=== PATIENT | male | born 1985 | race Caucasian/White ===

== ENCOUNTER 2019-04-02 22:59 | Inpatient (IN) | payer SELFPAY ==
[~2019-04-02] VITALS: Ht 170.2 cm; Wt 77.1 kg
[2019-04-02 23:03] VITALS: Ht 170.2 cm; Wt 77.1 kg
--- NOTE | 2019-04-02 23:21 | NUR ---
PT BIB SISTER AND FATHER FOR HEMATEMESIS X3 DAYS. PER PT DARK RED BLOOD NOTED. SISTER STS PT DRINK ETOH "A TON." PT AAO4, RESP E/U. GIVEN EMESIS BAG AND BLANKET FOR COMFORT. MSE BY LORETTA HILARIO.
[2019-04-02 23:58] LABS: BASOPHIL % 0.2 % (0-2); PLATELET COUNT 228 x10^3mcL (130-400); RED CELL DISTRIBUTION WIDTH 13.9 % (11.5-14.5)
[2019-04-03 00:18] LABS: CALCIUM 8.6 mg/dL (8.5-10.1); CARBON DIOXIDE 19.4 mmol/L (21-32); CHLORIDE SERUM 93 mmol/L (98-107); CREATININE SERUM 1.4 mg/dL (0.7-1.3); GFR1 > 60 mL/min; GLUCOSE SERUM 157 mg/dL (74-106); POTASSIUM SERUM 3.5 mmol/L (3.5-5.1); SODIUM SERUM 139 mmol/L (136-145)
[2019-04-03 00:24] LABS: ALBUMIN 4.5 g/dL (3.4-5.0); ALKALINE PHOSPHATASE 86 U/L (46-116); ALT/SGPT 231 U/L (16-63); AST/SGOT 207 U/L (15-37); BILIRUBIN TOTAL 0.7 mg/dL (0.20-1.00); LIPASE 558 IU/L (73-393); TOTAL PROTEIN, SERUM 8.2 g/dL (6.4-8.2)
--- NOTE | 2019-04-03 00:40 | NUR ---
PT IN [facility], CONNECTED TO FULL CM. SISTER REMAINS AT BEDSIDE. PT STS WANTS PAIN MEDS. MD HILARIO MADE AWARE. STS PT NEEDS TO PROVIDE URINE FIRST.
--- NOTE | 2019-04-03 01:26 | NUR ---
PER MD PT ALCOHOL LEVEL TOO HIGH FOR PAIN MEDS. FAMILY AND PT MADE AWARE. VERBALIZES UNDERSTANDING
--- NOTE | 2019-04-03 01:35 | NUR ---
REPORT GIVEN TO RIMA STOCKTON TO ASSUME CARE.
--- NOTE | 2019-04-03 01:49 | NUR ---
REPORT RECIEVED FROM LENIN ABARCA TO ASSUME CARE OF PT.
[2019-04-03 01:59] LABS: AMPHETAMINE QUAL UR NONE DETECTED (See below)
--- NOTE | 2019-04-03 02:03 | NUR ---
PT MEDICATED PER ORDER. SEE EMAR.
[2019-04-03] MEDS ORDERED: PROTONIX20 MG (02:19)
[2019-04-03] MEDS ORDERED: LEXAPRO5 M1 (02:19)
--- NOTE | 2019-04-03 02:28 | NUR ---
REPORT GIVEN TO RN FRANCINE TO ASSUME CARE OF PT.
--- NOTE | 2019-04-03 02:34 | NUR ---
PT TRANSFERRED TO TELE BED 240B VIA GURNEY WITH EMT JUWAN AND RIMA GOLD AT PT SIDE. PT TRANSFERRED WITHOUT INCIDENCE.
[2019-04-03 02:59] VITALS: BP 115/77
--- NOTE | 2019-04-03 03:01 | NUR ---
ADMIT FOR POSSIBLE GI BLEED WITH COFFEE GROUND EMESIS. DENIES N/V AT THIS TIME. AOX4. TELE #26, ST. HR 120'S. BREATHING E/U. C/O ABD PAIN, HICCUPS, AND SORE THROAT. EASILY AGITATED. WILL MEDICATE PER EMAR. IV TO RAC, PATENT. INSTRUCTED ON NPO STATUS. ORIENTED TO ROOM. BED IN LOWEST POSITION, 2 SIDE RAILS UP, CALL LIGHT IN REACH.
[2019-04-03 03:10] LABS: FREE T4 0.86 ng/dL (0.76-1.46); FREE THYROXINE INDEX 2.3 ug/dL (1.4-4.5); T4(THYROXINE) 6.5 ug/dL (4.7-13.3)
[2019-04-03 04:02] LABS: CHOLESTEROL/HDL RATIO 2.1; MAGNESIUM 1.8 mg/dL (1.8-2.4); PHOSPHOROUS 2.7 mg/dL (2.5-4.9); T3 TOTAL 1.15 ng/mL
--- NOTE | 2019-04-03 04:20 | NUR ---
DR ROMEO MADE AWARE OF HR IN 140-150'S. PT RESTING IN NO ACUTE DISTRESS. WILL CONTINUE TO MONITOR.
--- NOTE | 2019-04-03 06:32 | NUR ---
PT HR SUSTAINING 160'S. ADMINISTERED CARDIZEM PO PER DR. ROMEO. NO C/O N/V. NO S/S GI BLEED AT THIS TIME. NO ACUTE DISTRESS NOTED. WILL ENDORSE TO ONCOMING RN.
[2019-04-03 06:49] LABS: BASOPHIL % 0.3 % (0-2); PLATELET COUNT 199 x10^3mcL (130-400); RED CELL DISTRIBUTION WIDTH 13.8 % (11.5-14.5)
--- NOTE | 2019-04-03 07:21 | NUR ---
ASSUMED CARE OF PATIENT. AWAKE AND ALERT THIS MORNING. REPORTING "FEELING BETTER," REQUESTING CEPACOL FOR SORE THROAT. NO APPARENT DISTRESS THIS MORNING. IV TO RAC PATENT AND INFUSING NS AT 120ML/HR. WILL CONTINUE TO MONITOR.
[2019-04-03 07:33] LABS: UA SPECIFIC GRAVITY 1.025 (1.005-1.035); microscopic required? YES; urine erythrocyte 2+ (NEGATIVE)
[2019-04-03 07:40] LABS: CALCIUM 7.8 mg/dL (8.5-10.1); CARBON DIOXIDE 22.7 mmol/L (21-32); CHLORIDE SERUM 96 mmol/L (98-107); CREATININE SERUM 0.9 mg/dL (0.7-1.3); GFR1 > 60 mL/min; GLUCOSE SERUM 125 mg/dL (74-106); MAGNESIUM 1.7 mg/dL (1.8-2.4); PHOSPHOROUS 3.2 mg/dL (2.5-4.9); SODIUM SERUM 140 mmol/L (136-145)
[2019-04-03 08:00] LABS: POTASSIUM SERUM 2.9 mmol/L (3.5-5.1)
--- NOTE | 2019-04-03 08:26 | NUR ---
PATIENT COMPLAINING OF 5/10 ABDOMINAL PAIN WITH HICCUPS. PRN TYLENOL AND ZOFRAN PROVIDED.
--- NOTE | 2019-04-03 08:34 | NUR ---
IVF RATE DECREASED TO 100ML/HR PER ORDERS.
[2019-04-03 08:45] VITALS: BP 128/74
--- NOTE | 2019-04-03 09:51 | NUR ---
PRN NORCO PROVIDED FOR 5/10 ABDOMINAL PAIN. PATIENT IS RESTING IN BED WITHOUT ANY APPARENT DISTRESS. RESPIRATIONS ARE EQUAL AND UNLABORED. MILD TREMORS NOTED.
[2019-04-03 10:55] VITALS: BP 131/83
--- NOTE | 2019-04-03 11:13 | NUR ---
PRN ATIVAN PROVIDED FOR TREMORS, SWEATING, AND INCREASED ANXIETY. PATIENT HAD EPISODE OF EMESIS WITH COFFE-GROUND PARTICLES. PATIENT NOT IN DISTRESS AFTER THE EPISODE AND NO LONGER REPORTING NAUSEA.
--- NOTE | 2019-04-03 12:15 | NUR ---
PRN ATIVAN PROVIDED FOR ANXIETY AND ZOFRAN PROVIDED FOR NAUSEA.
--- NOTE | 2019-04-03 13:55 | NUR ---
ABLE TO TOLERATE SMALL AMOUNTS OF CLEAR LIQUID DIET. NO EPISODE OF EMESIS AFTER EATING.
[2019-04-03 15:09] LABS: CALCIUM 8.3 mg/dL (8.5-10.1); CARBON DIOXIDE 27.3 mmol/L (21-32); CHLORIDE SERUM 99 mmol/L (98-107); CREATININE SERUM 0.8 mg/dL (0.7-1.3); GFR1 > 60 mL/min; GLUCOSE SERUM 112 mg/dL (74-106); POTASSIUM SERUM 3.8 mmol/L (3.5-5.1); SODIUM SERUM 136 mmol/L (136-145)
--- NOTE | 2019-04-03 15:15 | NUR ---
PATIENT COMPLAINING OF TREMORS AND ANXIETY. PRN ATIVAN PROVIDED.
--- NOTE | 2019-04-03 15:39 | NUR ---
PATIENT HAD EPISODE OF BROWN COLORED EMESIS.
--- NOTE | 2019-04-03 15:59 | NUR ---
PRN NORCO PROVIDED FOR 6/10 ABDOMINAL PAIN AND ZOFRAN PROVIDED FOR NAUSEA.
[2019-04-03 16:15] VITALS: BP 136/87
--- NOTE | 2019-04-03 16:21 | NUR ---
PATIENT IN 04/08 ABDOMINAL PAIN. ATTEMPTING TO CONTACT AND RESIDENTS AT THIS TIME.
--- NOTE | 2019-04-03 16:39 | NUR ---
NOTIFIED OF PATIENTS 04/08. AWAITING NEW ORDERS.
--- NOTE | 2019-04-03 17:06 | NUR ---
INCREASED NORCO DOSE TO 7.5. DUE TO EARLIER 5MG DOSE, UNABLE TO PROVIDE TO PATIENT FOR 10/10 ABDOMINAL PAIN. PAGED AGAIN FOR POSSIBLE ONE TIME DOSE.
--- NOTE | 2019-04-03 17:34 | NUR ---
PRN TYLENOL PROVIDED FOR 9/10 ABDOMINAL PAIN, NO OTHER PAIN MEDICATIONS AVAILABLE AT THIS POINT. ATTEMPTED TO CONTACT RESIDENTS BUT NO RESPONSE.
--- NOTE | 2019-04-03 18:37 | NUR ---
PATIENT RESTING IN BED WITH COMPLAINTS OF ABDOMINAL PAIN. PRN ATIVAN PROVIDED PER EMAR. IV TO RAC PATENT AND INFUSING NS AT 50ML/HR. WILL ENDORSE CARE TO ONCOMING RN.
[2019-04-03 19:36] VITALS: BP 135/88
--- NOTE | 2019-04-03 19:54 | NUR ---
PT CURRENTLY RESTING IN BED, NO ACUTE DISTRESS. A/O X4. TELE #26 SHOWING SINUS TACHYCARDIA, DENIES CHEST PAIN. PULSES PALPABLE IN ALL EXTREMITIES, NO EDEMA NOTED. LUNG SOUNDS CTA BILATERALLY, DENIES SOB. BOWEL SOUNDS ACTIVE, LAST BM 04/02/19. C/O N/V, ABD PAIN /10, AND HICCUPS, WILL MEDICATE PER EMAR. VOIDING WELL. MILD GENERALIZED WEAKNESS. SKIN INTACT. IV PATENT AND INTACT. BED IN LOWEST POSITION, SIDE RAILS UP X2, CALL LIGHT WITHIN REACH. WILL CONTINUE TO MONITOR.
--- NOTE | 2019-04-03 20:00 | NUR ---
PT VOMITTING BROWN EMESIS, MEDICATED PT PER EMAR.
--- NOTE | 2019-04-04 00:38 | NUR ---
PT CURRENTLY RESTING IN BED, NO ACUTE DISTRESS. WILL CONTINUE TO MONITOR.
[2019-04-04 04:53] VITALS: BP 119/76
--- NOTE | 2019-04-04 06:02 | NUR ---
PT SLEPT PERIODICALLY THROUGHOUT NIGHT, MULTIPLE EPISODES OF VOMITTING BROWN EMESIS, MEDICATED PER EMAR. NO SIGNIFICANT CHANGES. IV PATENT AND INTACT. BED IN LOWEST POSITION, SIDE RAILS UP X2, CALL LIGHT WITHIN REACH. WILL ENDORSE CARE TO ONCOMING NURSE.
[2019-04-04 06:22] LABS: BASOPHIL % 0.7 % (0-2); PLATELET COUNT 159 x10^3mcL (130-400); RED CELL DISTRIBUTION WIDTH 13.6 % (11.5-14.5)
[2019-04-04 06:26] LABS: CALCIUM 8.2 mg/dL (8.5-10.1); CARBON DIOXIDE 24.9 mmol/L (21-32); CHLORIDE SERUM 96 mmol/L (98-107); CREATININE SERUM 0.6 mg/dL (0.7-1.3); GFR1 > 60 mL/min; GLUCOSE SERUM 106 mg/dL (74-106); POTASSIUM SERUM 3.3 mmol/L (3.5-5.1); SODIUM SERUM 133 mmol/L (136-145)
--- NOTE | 2019-04-04 07:29 | NUR ---
PT SITTING IN BED A/A. BREATHING EQUAL/UNLABORED ON RA. PT HAS HICCUPS. IVF RUNNING AT 50 ML/HR. NO REDNESS/ SWELLING TO IV SITE. BED IN LOW POSITON, CALL LIGHT IN REACH, SEIZURE PRECAUTIONS IN PLACE. WILL CONTINUE TO MONITOR
[2019-04-04 07:37] VITALS: BP 137/82
[2019-04-04 11:49] VITALS: BP 127/80
--- NOTE | 2019-04-04 11:50 | NUR ---
PT LYING IN BED A/A. BREATHING EQUAL/ UNLABORED ON RA. IVF RUNNING AT 50ML/HR. NO REDNESS/ SWELLING AT IV SITE. C/O BURNING IN THROAT/ AND MILD NAUSEA. PT STATES HE DOES NOT WANT MEDICATION AT THIS TIME. BED IN LOW POSITION, CALL LIGHT IN REACH, SEIZURE PRECAUTIONS IN PLACE. WILL CONTINUE TO MONITOR
[2019-04-04 15:40] VITALS: BP 112/76
--- NOTE | 2019-04-04 15:41 | NUR ---
[employer] LEADER CALLED AND NOTIFIED ME THAT PT PULSE WAS 160. PT AYSMPTOMATIC. VS TAKEN. PT VSS/ WITH SINUS TACH. PT SLEEPING IN BED. BREATHING EQUAL/ UNLABORED ON RA. BED IN LOW POSITION, CALL LIGHT IN REACH, SEIZURE PRECAUTIONS IN PLACE. WILL CONTINUE TO MONITOR
--- NOTE | 2019-04-04 16:10 | NUR ---
PT FOUND WITH HIS OWN CLOTHES ON/ IV OUT WITH CATHETER INTACT/ TELE OFF AND STATED "ARE WE DONE, I THOUGHT I WAS GOING HOME". PT RE ORIENTED, PT NOW WEARING HOSPITAL GOWN, LYING IN BED. NEW IV PLACED. TELE PLACED. PT SLEEPING, BREATHING EQUAL/ UNLABORED. IVF RUNNING AT 50ML/HR. BED IN LOW POSITION, CALL LIGHT IN REACH, SEIZURE PRECAUTIONS IN PLACE. WILL CONTINUE TO MONITOR
--- NOTE | 2019-04-04 18:41 | NUR ---
PT LYING IN BED WITH EYES CLOSED, AROUSABLE TO VOICE. BREATHING EQUAL/ UNLABORED ON RA. IVF RUNNING AT 50ML/HR. NO REDNESS/ SWELLING TO IV SITE. NO ACUTE DISTRESS/ PAIN NOTED AT THIS TIME. BED IN LOW POSITION, CALL LIGHT IN REACH. SEIZURE/ FALL PRECAUTIONS IN PLACE. WILL ENDORSE TO ON COMING NURSE
--- NOTE | 2019-04-04 19:05 | NUR ---
RECEIVED REPORT FROM VIKY ABARCA. ASSUMING ALL CARE
--- NOTE | 2019-04-04 19:25 | NUR ---
RECEIVED PT LAYING IN BED. PT IS A/OX4. SPEECH IS CLEAR. ABLE TO MAKE NEEDS KNOWN/FOLLOW SIMPLE COMMANDS. DENIES [place]. SEIZURE PRECAUTIONS IN PLACE. EENT FREE OF DISCHARGE. ORAL MUCOSA PINK AND MOIST. NO JVD NOTED. TRACHEA MIDLINE. BREATHING IS E/U ON RA. LUNGS SOUND CLEAR BILAT. SYMMETRICAL CHEST EXPANSION NOTED. S1/S2 HEART SOUNDS AUSCULTATED. CHEST WALL EQUAL AND SYMMETRICAL. DENIES ANY CP. PT ON TELE [address] PALPABLE PULSES X4 EXTREMITIES. SKIN IS WARM AND DRY. NO EDEMA NOTED. RFA IV IN PLACE INFUSING NS @ 40 ML/HR. CAP REFILL < 3 SECS. GENERALIZED WEAKNESS. ACTIVE FULL ROM X4 EXTREMITIES. NO JOINT SWELLING/DEFORMITY NOTED. PT IS ON CLEAR LIQUID DIET. ABD IS SOFT, ROUND, NONTENDER TO PALPATION. BOWEL SOUNDS ACTIVE X4 QUADRANT. NO BM NOTED. DENIES ANY N/V, ABD PAIN AT THIS TIME. PT VOIDS FREELY VIA URINAL. NO SCROTAL EDEMA/PENILE DISCHARGE NOTED. SKIN IS INTACT. PT ABLE TO REPOSITION SELF INDEPENDETLY. PT IS CALM AT THIS TIME. HX: ETOH ABUSE. BED IN LOW POSITION. CALL LIGHT IN REACH. WILL CONT TO MONITOR
[2019-04-04 20:18] VITALS: BP 108/77
--- NOTE | 2019-04-04 20:36 | NUR ---
PT AGITATED AT THIS TIME. C/O FEELING ANXIOUS. PT MEDICATED WITH ATIVAN 1 MG IVP PER EMAR. WILL CONT TO MONITOR
--- NOTE | 2019-04-04 21:35 | NUR ---
PT C/O BACK PAIN RATED 8/10. PT MEDICATED WITH NORCO PER EMAR. WILL CONT TO MONITOR
--- NOTE | 2019-04-04 23:33 | NUR ---
PT IS RESTLESS/AGITATED AT THIS TIME. PT MEDICATED WITH ATIVAN IVP PER EMAR
--- NOTE | 2019-04-05 01:30 | NUR ---
ENTERED PT'S ROOM TO FIND PT SITTING ON A CHAIR MUMBLING TO HIMSELF. WHEN ASKED IF HE WAS OK, PT STATED, " ALL SHIT BROKE LOOSE". PT REMOVED RFA IV, NOTED WITH CATH INTACT. PT ASSISTED BACK IN BED AND ORIENTED AT THIS TIME. NEW IV ESTABLISHED TO RAC 20 GAUGE. IV FLUSHED 10 ML OF NS WITH NO S/S OF INFILTRATION NOTED.
--- NOTE | 2019-04-05 01:45 | NUR ---
PT C/O ACHING BACK PAIN RATED 8/10. PT MEDICATED WITH NORCO PER EMAR
--- NOTE | 2019-04-05 01:53 | NUR ---
PT AGITATED AT THIS TIME. PT MEDICATED WITH ATIVAN PER EMAR. WILL CONT TO MONITOR.
--- NOTE | 2019-04-05 03:38 | NUR ---
ENTERED PT'S ROOM TO FIND PT SITTING AT THE SIDE OF THE BED WITH HIS GOWN AND CARDIAC LEADS REMOVED AND CHANGING INTO HIS HOME CLOTHING. WHEN ASKED WHAT HE WAS DOING, PT STATED, " I AM DONE WITH THIS. THIS IS ALL A CONSPIRACY. I SEE WHAT YOU GUYS ARE DOING. YOU GUYS SELECT SPECIFICALLY THE SHOWS ON TV AND IT IS A CONSPIRACY. IT IS NOT SAFE HERE. IT IS ALL A LIE. I AM GOING HOME". WHEN ASKED IF HE KNEW WHERE HE WAS AT, PT STATED, "I AM NOT STUPID". PT REFUSING TO ANSWER A/O QUESTIONS. PT ORIENTED AT THIS TIME. GOWN PLACED BACK ON PT, ASSISTED BACK IN BED, CARDIAC LEADS CONNECTED, TV TURNED OFF. PT REMAINS AGITATED. PT MEDICATED WITH ATIVAN IVP PER EMAR. EDUCATED ON IMPORTANCE OF USING CALL LIGHT FOR ASSISTANCE. PT VERBALIZED UNDERSTANDING
[2019-04-05 05:30] VITALS: BP 146/86
--- NOTE | 2019-04-05 05:50 | NUR ---
ENTERED PT'S ROOM TO FIND HIM WITH HIS PERSONAL CLOTHING AND BOOTS IN PLACE. WHEN ASKED WHAT HE WAS DOING, PT STATED, " I AM DONE WITH THIS. I AM GOING HOME. I DON'T NEED TO BE HERE". PT EDUCATED ON THE IMPORTANCE OF REMAINING IN THE HOSPITAL TO RECEIVE PROPER CARE. PT INSISTING ON LEAVING. DR. POWER MADE AWARE. DR. POWER SPOKE TO THE PT AT BEDSIDE THE RISK OF LEAVING AMA, INCLUDING THE POSSIBILITY OF . PT MADE AWARE HE IS TO RETURN IF HIS S/S GET WORSE. PT VERBALIZED UNDERSTANDING AND IN AGREEMENT ON LEAVING AMA. AMA FORMED SIGNED BY DR. POWER AND THE PT, FORMED PLACED IN THE CHART. RAC IV REMOVED AT THIS TIME WITH CATH INTACT, ID BAND AND TELE BOX REMOVED.
== END 2019-04-05 05:50 | disposition left against medical advice (07) | DRG 377 ==
LOC: ED 22:59 → DU 04-03 01:33
PROVIDERS: Emergency Medicine; ADMIT Internal Medicine
DX: K92.2 Gastrointestinal hemorrhage, unspecified (principal); G92 Toxic encephalopathy; N17.0 Acute kidney failure with tubular necrosis; E87.1 Hypo-osmolality and hyponatremia; R74.0 Nonspecific elevation of levels of transaminase and lactic acid dehydrogenase [LDH]; F10.129 Alcohol abuse with intoxication, unspecified; Y90.9 Presence of alcohol in blood, level not specified; E87.6 Hypokalemia
CPT/HCPCS: 84439; C9113; G0378; G0480; J2060; J2405; J2550; J3475; J3480; J7030; J8597; Q0161

== ENCOUNTER 2019-04-05 21:03 | Inpatient (IN) | payer SELFPAY ==
[~2019-04-05] VITALS: Ht 177.8 cm; Wt 77.1 kg
[~2019-04-05 21:03] MED LIST: LEXAPRO5 M1; PROTONIX20 MG
[2019-04-05 21:16] VITALS: Ht 177.8 cm; Wt 77.1 kg
--- NOTE | 2019-04-05 21:19 | NUR ---
EKG IN PROGRESS IN TRIAGE BY EMT
--- NOTE | 2019-04-05 22:36 | NUR ---
PT CAME TO ED CO DIZZINESS. PT STS HE WOKE UP FROM SLEEP AND FELT DIZZY. PT STS HE TOOK HIS BLOOD PRESSURE, IT WAS "HIGH". PT STS HE WAS WORRIED, WHICH MADE HIM COME IN. PT STS HIS DIZZINESS HAS SUBSIDED NOW. PT VITAL SIGN WNL. NO S/S OF DISTRESS. RESP E/U. PT AMBULATED W/STEADY GAIT TO ROOM. WILL CONTINUE TO MONITOR.
--- NOTE | 2019-04-05 22:50 | NUR ---
PT SITTING UP ON EDGE OF BED, AAOX4 WITH C/O 8/10 GENERALIZED ABD PAIN X 4 DAYS WITH INTRACTABLE HICCUPS, DARK STOOLS AND BLOODY EMESIS. PT STATES HAVING DIZZINESS TODAY. PT STATES HE LEFT AMA YESTERDAY WHEN HE WAS ADMITTED AND HAS COME BACK, STATING 'I CAN'T TAKE IT ANYMORE'. PT NOTED TO HAVE PERSISTANT HICCUPING. PT DENIES ANY PAINFUL URINATION OR FEVER/CHILLS AT THIS TIME.
[2019-04-05 23:16] LABS: BASOPHIL % 0.7 % (0-2); PLATELET COUNT 207 x10^3mcL (130-400); RED CELL DISTRIBUTION WIDTH 13.4 % (11.5-14.5)
[2019-04-05 23:24] LABS: CALCIUM 9.2 mg/dL (8.5-10.1); CARBON DIOXIDE 25.8 mmol/L (21-32); CHLORIDE SERUM 99 mmol/L (98-107); CREATININE SERUM 0.8 mg/dL (0.7-1.3); GFR1 > 60 mL/min; GLUCOSE SERUM 102 mg/dL (74-106); POTASSIUM SERUM 3.5 mmol/L (3.5-5.1); SODIUM SERUM 137 mmol/L (136-145)
[2019-04-05 23:28] LABS: ALBUMIN 3.7 g/dL (3.4-5.0); ALKALINE PHOSPHATASE 78 U/L (46-116); ALT/SGPT 136 U/L (16-63); AST/SGOT 91 U/L (15-37); BILIRUBIN TOTAL 0.7 mg/dL (0.20-1.00); LIPASE 779 IU/L (73-393); TOTAL PROTEIN, SERUM 7.6 g/dL (6.4-8.2)
--- NOTE | 2019-04-05 23:30 | NUR ---
PT OFF OF FLOOR TO CT SCAN.
--- NOTE | 2019-04-06 00:21 | NUR ---
PT RESTING IN BED WITH NO SIGNS OF DISTRESS.
--- NOTE | 2019-04-06 01:06 | NUR ---
REPORT GIVEN TO DELILAH ABARCA.
[2019-04-06 01:37] VITALS: BP 124/89
--- NOTE | 2019-04-06 01:53 | NUR ---
RECEIVED PT FROM ER, PT ADMIT FOR UPPER GI BLEED. PT IS A/O X4, VERBAL RESPONSIVE, LUNG SOUND CLEAR BILATERAL, NO COUGH, NO SOB, PT IS TELE 23, ST, DENY ANY CHEST PAIN OR DISCOMFORT. BOWEL SOUND PRESENT ALL 4 QUADRANTS, NO DISTENTION, NO TENDER. PEDAL PULSE PRESENT BOTH FEET, NO EDEMA, IV AT RIGHT AC, NO LEAKING, NO INFILTRATION. PT HAS TREMOR BOTH HANDS, PT APPREARED DEPRESSED, PT STATE HE JUST RECENTLY LAY OFF. DENY ANY SUICIDAL THOUGHS AT THIS MOMENT. ALL ADLS ASSIST, ALL NEED MET, CALL LIGHT IN REACH, WILL CONTINUE TO MONITOR.
--- NOTE | 2019-04-06 02:07 | NUR ---
PT. ARRIVED TO UNIT WITH SANDOSTATIN DRIP AT 50CC/HR. IVF NS STARTED ORDERED. CALL LIGHT PLACED WITHIN REACH.
--- NOTE | 2019-04-06 02:57 | NUR ---
PT. STARTED HAVING MULTIPLE HICCUPS AND CANNOT STOP. PER PATIENT THEY ARE FLARING UP HIS ABD. PAIN. PAIN LEVEL 8/10. PRN MORPHINE GIVEN. WILL MONITOR.
[2019-04-06 05:29] VITALS: BP 110/77
--- NOTE | 2019-04-06 06:24 | NUR ---
PT. BETWEEN SLEEP AND WAKE. NO EMESIS OR BOWEL MOVEMENT THUS FAR. IV SANDOSTATIN DRIP CONTINUES AT 50CC/HR. IVF NS AT 100CC/HR. SITE INTACT. CALL LIGHT WITHIN REACH. WILL ENDORSE PT. CARE TO INCOMING NURSE.
--- NOTE | 2019-04-06 08:19 | NUR ---
AAO TIMES 4. TELE # [address] LUNGS CTA. NO SOB. O2 SAT ON RA 98%. BS'S ACTIVE TIMES 4. DE [place] STRONG. DENIES N/V OR DIARRHEA. PERIPHERAL PULSES PALPABLE. NO EDEMA. IV SITE CDI. C/O ABDOMINAL PAIN AT THIS TIME, WILL MEDICATE.
[2019-04-06 08:23] VITALS: BP 106/69
--- NOTE | 2019-04-06 10:26 | NUR ---
C/O ANXIETY AT 1020. I GAVE ATIVAN PO MD ORDERED AT 1026. HE VERBALIZED RELIEF, AND AT 1130 HE STATED HE FELT BETTER. HE STATES HE DRINKS 3 TALL CAN OF BEER PER DAY.
[2019-04-06 11:28] LABS: BASOPHIL % 0.5 % (0-2); PLATELET COUNT 206 x10^3mcL (130-400); RED CELL DISTRIBUTION WIDTH 13.6 % (11.5-14.5)
[2019-04-06 11:43] LABS: CALCIUM 8.3 mg/dL (8.5-10.1); CARBON DIOXIDE 25.3 mmol/L (21-32); CHLORIDE SERUM 101 mmol/L (98-107); CREATININE SERUM 0.7 mg/dL (0.7-1.3); GFR1 > 60 mL/min; GLUCOSE SERUM 114 mg/dL (74-106); PHOSPHOROUS 3.3 mg/dL (2.5-4.9); POTASSIUM SERUM 3.7 mmol/L (3.5-5.1); SODIUM SERUM 139 mmol/L (136-145)
[2019-04-06 12:09] VITALS: BP 118/82
--- NOTE | 2019-04-06 14:11 | NUR ---
Discount pharmacy card and list to low cost medical clinics given to patient by Mac.
--- NOTE | 2019-04-06 14:15 | NUR ---
AT 1415 PATIENT WAS EATING HIS NEW REG DIET (NPO PREVIOUS) WHEN HIS HEART RATE BECAME ST 120. I CHECKED ON HIM, AND HE STATED HE WAS HAVING EPIGASTRIC PAIN 01/06, HE ASKED FOR PAIN MEDICINE. I GAVE HIM MORPHINE 2 MG IVP AT [address] CASTAÑEDA OF THIS, SHE WAS POSSIBLY DISCHARGING HIM HOME. DR PERLA SAW THE PATIENT, BUT WONT BE DOING A PROCEDURE ON HIM. NO DISCHARGE HAS BEEN WRITTEN AT THIS TIME.
[2019-04-06 17:13] VITALS: BP 137/58
--- NOTE | 2019-04-06 18:05 | NUR ---
AAO TIMES 4. TELE # 23 ST 105. ATE 15% OF DINNER, BUT HE IS C/O HEART BURN, DENIES N/V OR DIARRHEA. IV SITE CDI. COOPERATIVE. ABMUTATORY, BRP SELF. NO C/O PAIN AT THIS TIME.
--- NOTE | 2019-04-06 19:35 | NUR ---
PT. AWAKE, ALERT, ORIENTED X4. DENIES HEADACHE OR DIZZINESS. SITTING UP IN BED. BREATH SOUNDS CLEAR THROUGHOUT LUNG ODOM, RESP. EVEN, UNLABORED. NO SOB NOTED. PT. ON RA. SINUS TACH ON TELE. DENIES CHESTPAIN. NO EDEMA TO EXTREMITIES. PEDAL PULSES STRONG NIDA. ABD. SOFT AND ROUND. C/O INTERMITTENT ABD.PAIN. BOWEL SOUNDS STRONG. IVF NS AT 100CC/HR. SANDOSTATIN DRIP AT 50CC/HR. CALL LIGHT WITHIN REACH.
[2019-04-06 20:58] VITALS: BP 121/83
--- NOTE | 2019-04-06 21:32 | NUR ---
PT. MEDICATED FOR C/O ABD. PAIN WITH PRN MORPHINE. PT. WALKING HALLS NOW, NO APPEARANT SIGNS OF PAIN OR DISTRESS NOTED. WILL MONITOR. CALL LIGHT WITHIN REACH.
--- NOTE | 2019-04-07 00:25 | NUR ---
PT. BETWEEN SLEEP AND WAKE, MOSTLY ON PHONE. APPEARS COMFORTABLE. WILL CONTINUE TO MONITOR.
[2019-04-07 05:43] VITALS: BP 99/76
--- NOTE | 2019-04-07 07:30 | NUR ---
PT ENDORSE TO ME THIS MORNING, SITTING UP IN BED RESTING. AA/O X4. BREATHING EVEN AND UNLABORED ON RA, NO ACUTE RESP DISTRESS OR SOB NOTE. TELE 23 ST NOTED. LAST BM ON 04/06. AMB, VOIDS FREELY. IV TO THE RFA INTACT AND PATENT INFUSING AT 100ML/HR, NO REDNESS OR SWELLIG NOTED. CALL LIGHT IN REACH.X2 SIDE RAILS UP. WILL CONTINUE TO MONITOR.
--- NOTE | 2019-04-07 08:25 | NUR ---
PT C/O ABD PAIN, 7/10 MEDICATED PER EMAR. WILL CONTINUE TO MONITOR.
--- NOTE | 2019-04-07 10:32 | NUR ---
PT FEELING ANXIOUS,MEDICATED PER EMAR. WILL CONTINUE TO MONITOR.
[2019-04-07 13:12] VITALS: BP 119/88
[2019-04-07 14:40] VITALS: BP 130/90
--- NOTE | 2019-04-07 14:54 | NUR ---
PT C/O OF FEELING ANXIOUS, MEDICATED PER EMAR. WILL CONTINUE TO MONITOR. PENDING DC
--- NOTE | 2019-04-07 15:40 | NUR ---
EXPLAINED DISCHARGED INSTRUCTIONS, NEW MED AND FOLLOW UP DOCTOR APPT ON 04/15 AT 10 AM/ PT AGREED AND SIGNED ALL DOCUMENTS. REMOVED TELE 23 AND RETURNED. REMOVED IV TO THE RFA/ CATHETER TIP INTACT/ TOLERATED WELL. PENDING D/C WAITING ON RIDE.
--- NOTE | 2019-04-07 16:12 | NUR ---
CARMEN OSUNA WALKED PT DOWN TO DISCHARGE LOBBY. PT DENIES ANY ABD PAIN OR DISCOMFORT OR ANXIOUSNESS AT THIS TIME. PT FATHER WILL BE DRIVING HIM HOME. DISCHARGED.
== END 2019-04-07 15:58 | disposition home or self-care (01) | DRG 377 ==
LOC: ED 21:03 → DU 04-06 00:22
PROVIDERS: Emergency Medicine; Family Medicine; ADMIT Internal Medicine
DX: K92.0 Hematemesis (principal); N17.0 Acute kidney failure with tubular necrosis; G92 Toxic encephalopathy; K92.1 Melena; F10.129 Alcohol abuse with intoxication, unspecified; Y90.9 Presence of alcohol in blood, level not specified; R74.0 Nonspecific elevation of levels of transaminase and lactic acid dehydrogenase [LDH]; Z79.899 Other long term (current) drug therapy
CPT/HCPCS: C9113; G0378; J2270; J2354; J2405; J2765; J7030; J7040